=== PATIENT | female | born 1945 | race Caucasian/White ===

== ENCOUNTER 2018-11-16 10:40 | Inpatient (IN) | payer MEDICARE, BC | END 2018-11-19 13:30 | disposition home or self-care (01) | LOC: PAS IN 10:40 → ORTHO 4S 14:30 | PROC: 0SR90J9 Replacement of Right Hip Joint with Synthetic Substitute, Cemented, Open Approach (ICD-10-PCS; principal; 2018-11-16 11:21) | DX: M16.11 Unilateral primary osteoarthritis, right hip (principal); M87.9 Osteonecrosis, unspecified; D62 Acute posthemorrhagic anemia ==